=== PATIENT | female | born 1965 | race American Indian/Alaskan Native ===

== ENCOUNTER 2016-04-28 12:15 | Emergency (ER) | payer OTHER ==
[2016-04-28 12:21] VITALS: BP 130/84
[2016-04-28] MEDS ORDERED: TORADOL IM ONE (13:19)
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
== END 2016-04-28 14:41 | disposition home or self-care (01) ==
LOC: ED 12:15
DX: M54.6 Pain in thoracic spine (principal); M54.2 Cervicalgia; R51 Headache; V89.2XXA Person injured in unspecified motor-vehicle accident, traffic, initial encounter; Y93.9 Activity, unspecified; Y99.9 Unspecified external cause status; Y92.9 Unspecified place or not applicable
CPT/HCPCS: 96372; 99282; J1885